=== PATIENT | male | born 1945 | race Two or more races ===

== ENCOUNTER → 2023-06-25 20:05 | Outpatient (REF) | payer MEDICARE, SELFPAY | LOC: MRI 20:05 | PROVIDERS: ATTENDING PHYSICIAN Internal Medicine Geriatric Medicine | DX: F09 Unspecified mental disorder due to known physiological condition (principal) | CPT/HCPCS: 70553; A9575 ==

== ENCOUNTER → 2024-09-29 15:29 | Outpatient (REF) | payer MEDICARE, SELFPAY ==
[2024-06-09 10:46] LABS: Hematocrit 44.5 % (39.0-52.0); Hemoglobin 14.6 g/dL (13.0-18.0); Mean Corp Hgb Conc. 32.8 g/dL (33.0-37.0); Mean Corpuscular Hgb 28.9 pg (27.0-31.0); Mean Corpuscular Volume 88.1 fL (80.0-94.0); Mean Platelet Volume 11.6 fL (7.4-10.4); Platelet Count 192 10^3/uL (130-400); Red Blood Cell Count 5.05 10^6/uL (4.70-6.10); Red Cell Dist. Width 13.2 % (11.5-14.5); White Blood Cell Count 6.2 10^3/uL (4.8-10.8)
[2024-06-09 11:16] LABS: ALT (SGPT) 33 U/L (0-50); AST (SGOT) 27 U/L (17-59); Albumin 3.8 g/dl (3.5-5.0); Alkaline Phosphatase 111 U/L (38-126); Blood Urea Nitrogen 26 mg/dl (9-20); Calcium 8.8 mg/dl (8.4-10.2); Carbon Dioxide 26 mmol/L (22-30); Chloride 100 mmol/L (98-107); Glucose 241 mg/dl (70-99); Potassium 5.1 mmol/L (3.5-5.1); Sodium 134 mmol/L (135-145); Total Protein 6.3 g/dl (6.3-8.2); eGFR > 60.00
[2024-06-09 12:06] LABS: Glycohemoglobin (HgbA1c) 9.2 % (4.0-5.6)
[2024-06-09 14:06] VITALS: BMI 35.0
[2024-06-09 17:56] VITALS: BMI 35.0
== END ==
LOC: REG 15:29
PROVIDERS: ATTENDING PHYSICIAN Specialist; FAMILY PHYSICIAN Internal Medicine Geriatric Medicine; OTHER PHYSICIAN Internal Medicine Cardiovascular Disease; OTHER PHYSICIAN Physician Assistant Medical
DX: M19.012 Primary osteoarthritis, left shoulder (principal)
CPT/HCPCS: 36415; 80053; 83036; 85027; 87070

== ENCOUNTER → 2024-10-31 14:53 | Outpatient (REF) | payer MEDICARE, SELFPAY | LOC: HWRAD 14:53 | PROVIDERS: ATTENDING PHYSICIAN Specialist; FAMILY PHYSICIAN Internal Medicine Geriatric Medicine | DX: M19.012 Primary osteoarthritis, left shoulder (principal) | CPT/HCPCS: 73200 ==

== ENCOUNTER 2024-11-07 06:06 | Day surgery (SDC) | payer MEDICARE, SELFPAY ==
[2024-10-27 09:50] VITALS: BMI 34.3
[2024-10-27 10:45] LABS: Hematocrit 43.2 % (39.0-52.0); Hemoglobin 14.2 g/dL (13.0-18.0); Mean Corp Hgb Conc. 32.9 g/dL (33.0-37.0); Mean Corpuscular Hgb 29.2 pg (27.0-31.0); Mean Corpuscular Volume 88.7 fL (80.0-94.0); Mean Platelet Volume 11.5 fL (7.4-10.4); Platelet Count 236 10^3/uL (130-400); Red Blood Cell Count 4.87 10^6/uL (4.70-6.10); Red Cell Dist. Width 12.5 % (11.5-14.5); White Blood Cell Count 9.8 10^3/uL (4.8-10.8)
[2024-10-27 12:44] LABS: Glycohemoglobin (HgbA1c) 7.6 % (4.0-5.6)
[2024-10-27 13:58] LABS: ALT (SGPT) 17 U/L (0-50); AST (SGOT) 20 U/L (17-59); Albumin 3.9 g/dl (3.5-5.0); Alkaline Phosphatase 121 U/L (38-126); Blood Urea Nitrogen 24 mg/dl (9-20); Calcium 9.2 mg/dl (8.4-10.2); Carbon Dioxide 24 mmol/L (22-30); Chloride 107 mmol/L (98-107); Estimated Creatinine Clearance 65 ml/min; Glucose 177 mg/dl (70-99); Potassium 4.8 mmol/L (3.5-5.1); Sodium 139 mmol/L (135-145); Total Protein 6.2 g/dl (6.3-8.2); eGFR > 60.00
[2024-10-27 16:53] VITALS: BMI 34.3
--- NOTE | 2024-10-28 13:51 | CM ---
CM reviewed medical records. CM left message.
--- NOTE | 2024-10-28 14:35 | CM ---
CM reviewed medical records. Patient confirmed demographics. Patient has a history of VN, but is currently not on service with any agency. Patient has has a history of SNF at [facility] and stated he had a 'horrible' experience. Patient is active with
his PCP. Patient has medication coverage.
Patient is available for support after surgery.
Patient plans to use [facility] when surgically cleared.
PLAN: Home , outpatient PT when surgically cleared.
[2024-11-07] VITALS (8 sets, daily range): BP systolic 119–169; BP diastolic 60–100
[2024-11-07 07:13] LABS: Glucose - Point of Care 60 mg/dl (70-99)
[2024-11-07] MEDS: CELEBREX 200 MG PO (07:18)
[2024-11-07] MEDS: TYLENOL 1000 MG PO (07:18)
[2024-11-07] MEDS: NORMOSOL-R/PLASMALYTE-A 1000 IV (07:19)
[2024-11-07 08:31] LABS: Glucose - Point of Care 107 mg/dl (70-99)
[2024-11-07 09:24] LABS: Glucose - Point of Care 123 mg/dl (70-99)
[2024-11-07] MEDS: ANCEF 5 IV (11:01)
== END 2024-11-07 11:10 | disposition home or self-care (01) ==
LOC: SDS 06:06
PROVIDERS: ATTENDING PHYSICIAN Specialist; FAMILY PHYSICIAN Internal Medicine Geriatric Medicine; OTHER PHYSICIAN Physician Assistant
DX: M19.012 Primary osteoarthritis, left shoulder (principal); Z96.612 Presence of left artificial shoulder joint
CPT/HCPCS: 23472; C1776; 36415; 73020; 80053; 82962; 83036; 85027; 87070; C1713